=== PATIENT | female | born 1990 ===

== ENCOUNTER 2020-12-12 19:08 | Outpatient (REF) | payer MEDICAID, SELFPAY ==
[2020-12-16 15:19] LABS: Chlamydia Result Negative (Negative); GC Result Negative (Negative)
== END 2020-12-12 19:09 | disposition home or self-care (01) ==
LOC: LBN 19:08
PROVIDERS: Visit Provider Physician Assistant Medical
DX: Z11.3 Encounter for screening for infections with a predominantly sexual mode of transmission (principal)
CPT/HCPCS: 87491; 87591; 87480; 87510; 87660